=== PATIENT | male | born 1990 | race Caucasian/White ===

== ENCOUNTER 2017-02-28 16:11 | Emergency (ER) | payer SELFPAY ==
[2017-02-28 16:13] VITALS: BP 152/74; PULSE 90; RESP 24; TEMP 97.9; O2SAT 99
--- NOTE | 2017-02-28 16:27 | PD ---
HPI . neck pain x 1 week Chief Complaint: Back/ Neck Pain or Injury Time Seen by Provider: 16:27 Travel History International Travel<30 days: No Contact w/Intl Traveler<30days: No Traveled to known affect area: No History of Present Illness HPI 26-year-old male with no signal past medical history and no history of IV drug use here with complaints of neck pain for one week. Patient does not recall the mechanism of injury and says that he all of a sudden developed neck pain. He is now unable to move his right arm freely. He says that he went to another hospital and was told there was nothing wrong and given tramadol and ibuprofen, which has not relieved his pain. They decided to come here for further evaluation. He denies any bowel or bladder dysfunction. He has full range of motion of his neck, but it some elicits pain with movement. We discussed imaging modality and mom is requesting an MRI here in the emergency department because she does not have insurance for him. I explained to her that unfortunately I do not believe this is indicated and can be done on outpatient basis. She then goes on to tell me that he is having chest pain and then he started to complain of chest pain,, when asked to point to his pain is located in his neck area. He denies any shortness of breath, nausea, vomiting or diaphoresis. He denies any fever or chills, no photophobia, no neck stiffness. He has no other complaints. He is accompanied by both of his parents. PFSH Past Medical History Medical History: Denies Significant Hx Social History Alcohol Use: No Tobacco Use: No Substance Use: No Allergies-Medications (Allergen,Severity, Reaction): Coded Allergies: No Known Allergies (Unverified , 02/28/17) Reported Meds & Prescriptions Reported Meds & Active Scripts Active Prednisone 50 Mg Tab 50 Mg PO DAILY Flexeril (Cyclobenzaprine HCl) 5 Mg Tab 5 Mg PO TID Reported Ibuprofen 800 Mg Tab 800 Mg PO Q8H PRN Tramadol (Tramadol HCl) 50 Mg Tab 50 Mg PO Q8H PRN Review of Systems General / Constitutional: No: Fever, Chills Eyes: No: Photophobia, Visual changes HENT: Positive: Neck Pain, No: Headaches, Sore Throat, Neck Stiffness Cardiovascular: No: Chest Pain or Discomfort Respiratory: No: Shortness of Breath Gastrointestinal: No: Abdominal Pain Genitourinary: No: Dysuria Musculoskeletal: Positive: Limited ROM (right arm), No: Pain Skin: No Rash Neurologic: No: Weakness, Paresthesia Psychiatric: No: Depression Endocrine: No: Polydipsia Hematologic/Lymphatic: No: Easy Bruising Physical Exam Narrative GENERAL: AAO x 3, no acute distress, Well-nourished, well-developed patient. SKIN: Warm and dry. No visible rashes or bruising. HEAD: Normocephalic and atraumatic. EYES: No scleral icterus. No injection or drainage. EOM intact, PERRLA ENT: No nasal drainage noted. Mucous membranes pink. Airway patent. NECK: Supple, trachea midline. No JVD. No C-spine process tenderness. Full range of motion. flexion and extension normal. No swelling seen. CARDIOVASCULAR: Regular rate and rhythm without murmurs, gallops, or rubs. RESPIRATORY: Breath sounds equal bilaterally. No accessory muscle use. No rhonchi or rales. GASTROINTESTINAL: Abdomen soft, non-tender, nondistended. EXTREMITIES: No cyanosis or edema. BACK: Nontender without obvious deformity. No CVA tenderness. NEURO: CN II-12 intact, business change manager strength normal b/l, UE and LE 5/5, no focal deficits PSYCH: AAO x 3, normal affect. Data Data Last Documented VS Vital Signs Date Time Temp Pulse Resp B/P Pulse Ox O2 Delivery O2 Flow Rate FiO2 02/28/17 16:13 97.9 90 24 152/74 99 Orders Orphenadrine Inj (Norflex Inj) (02/28/17 16:45) Ketorolac Inj (Toradol Inj) (02/28/17 16:45) Spine, Cervical Compl(Jel3oop) (02/28/17 16:33) Complete Blood Count With Diff (02/28/17 16:33) Basic Metabolic Panel (Bmp) (02/28/17 16:33) Labs Laboratory Tests Test 02/28/17 17:15 White Blood Count 14.2 TH/MM3 Red Blood Count 4.38 MIL/MM3 Hemoglobin 12.9 GM/DL Hematocrit 36.7 % Mean Corpuscular Volume 83.9 FL Mean Corpuscular Hemoglobin 29.6 PG Mean Corpuscular Hemoglobin 35.2 % Concent Red Cell Distribution Width 13.0 % Platelet Count 338 TH/MM3 Mean Platelet Volume 8.4 FL Neutrophils (%) (Auto) 68.8 % Lymphocytes (%) (Auto) 19.3 % Monocytes (%) (Auto) 9.6 % Eosinophils (%) (Auto) 1.9 % Basophils (%) (Auto) 0.4 % Neutrophils # (Auto) 9.8 TH/MM3 Lymphocytes # (Auto) 2.7 TH/MM3 Monocytes # (Auto) 1.4 TH/MM3 Eosinophils # (Auto) 0.3 TH/MM3 Basophils # (Auto) 0.1 TH/MM3 CBC Comment DIFF FINAL Differential Comment Sodium Level 137 MEQ/L Potassium Level 4.6 MEQ/L Chloride Level 106 MEQ/L Carbon Dioxide Level 24.2 MEQ/L Anion Gap 7 MEQ/L Blood Urea Nitrogen 10 MG/DL Creatinine 0.67 MG/DL Estimat Glomerular Filtration 142 ML/MIN Rate Random Glucose 79 MG/DL Calcium Level 9.5 MG/DL MDM Medical Decision Making Medical Screen Exam Complete: Yes Emergency Medical Condition: Yes Medical Record Reviewed: Yes Differential Diagnosis muscle strain, cervical radiculopathy, less likely c spine fracture, less likely meningitis, Narrative Course 26 yr old male here with c/o neck pain. He denies any injury. exam unremarkable except for decreased ROM of right shoulder/arm. ? rotator cuff Explained to patient and family that I will check Xray to r/o any overt fracture etc. I will also check labs. I have discussed with Dr. Lambert. Patient given Toradol and Norflex. Reports pain is much better. He told his parents he wants to go to work. I discussed normal results with the patient and his family. WBC is slightly elevated, but no shift. He denies any fever, chills, respiratory or urinary symptoms. We do not suspect infectious etiology. I recommend outpatient MRI with PCP. Mom is trying to get all tests done here in ED. I have spent a prolonged amount of time discussing workup and outpatient tests. VSS. Patient is hemodynamically stable. I have watched him from where I am sitting and he is able to get up and look around the room. He moves his neck around without any difficulty. He verbalized his pain is better. I will dc with muscle relaxer and steroids. Case was discussed with Dr. Lambert prior to discharge and he recommends dc and outpatient f/u. Patient verbalized understanding of instructions, questions were answered. I advised them if their condition worsens, please return to the nearest emergency room for further care. Diagnosis Primary Impression: Neck pain Additional Impression: Muscle strain Referrals: [facility] Patient Instructions: General Instructions Departure Forms: Tests/Procedures, Work Release Enter return to work date: Mar 02, 2017 Additional Instructions: Please return to emergency department if your symptoms return or worsen. Follow up with your primary care provider. Take medications as prescribed. As we discussed, you will need to follow-up with the primary care provider. They will determine any further imaging as we discussed. Muscle relaxers can cause drowsiness. Do not drive, swim or operate heavy machinery while using these medications. Med/Other Pt SpecificInfo: Prescription(s) given Scripts Prednisone 50 Mg Tab50 Mg PO DAILY #5 TAB Prov:Leonardo Lambert MD 02/28/17 Cyclobenzaprine (Flexeril)5 Mg Tab5 Mg PO TID #21 TAB Prov:Leonardo Lambert MD 02/28/17 Disposition: 01 DISCHARGE HOME Condition: Stable Brenda Landrum Feb 28, 2017 16:27
[2017-02-28] MEDS ORDERED: ORPHENADRINE INJ 60 MG/2 ML AMP IM ONE (16:45)
[2017-02-28] MEDS ORDERED: KETOROLAC TROMETHAMINE 60 MG/2 ML (IM) VIAL IM ONE (16:45)
--- NOTE | 2017-02-28 17:15 | RADRPT ---
EXAM DATE/TIME: 02/28/2017 16:45 [facility] COMPARISON: No previous studies available for comparison. 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 MEDICAL HISTORY : None. SURGICAL HISTORY : None. ENCOUNTER: Initial ACUITY: 1 week PAIN SCORE: 10/10 LOCATION: Bilateral neck FINDINGS: Five view examination was performed. There is normal alignment and curvature of the vertebral bodies down to the level of C7. No evidence of fracture or subluxation. Vertebral body height is normal. The disc spaces are maintained. The prevertebral soft tissues are of normal thickness. The atlanto -axial articulation is intact. The bony neural foramen are patent bilaterally. CONCLUSION: Unremarkable examination of the cervical spine. Chidi Hallman MD on February 28, 2017 at 17:11 Board Certified Radiologist. This report was verified electronically.
[2017-02-28 17:54] LABS: AUTOMATED NEUTROPHIL # 9.8 TH/MM3 (1.8-7.7); BASOPHIL # 0.1 TH/MM3 (0-0.2); BASOPHIL % 0.4 % (0.0-2.0); EOSINOPHIL # 0.3 TH/MM3 (0-0.4); EOSINOPHIL % 1.9 % (0.0-4.0); HEMATOCRIT 36.7 % (39.0-51.0); HEMO FLAGS DIFF FINAL; LYMPH % 19.3 % (9.0-44.0); LYMPHOCYTE # 2.7 TH/MM3 (1.0-4.8); MEAN CELL VOLUME 83.9 FL (80.0-100.0); MEAN CORPUSCULAR HEMOGLOBIN 29.6 PG (27.0-34.0); MEAN CORPUSCULAR HGB CONC 35.2 % (32.0-36.0); MONO % 9.6 % (0.0-8.0); NEUT % 68.8 % (16.0-70.0); PLATELET COUNT 338 TH/MM3 (150-450); RED BLOOD COUNT 4.38 MIL/MM3 (4.50-5.90); WHITE BLOOD COUNT 14.2 TH/MM3 (4.0-11.0)
[2017-02-28] MEDS ORDERED: IBUP800T23 PO (18:17)
[2017-02-28] MEDS ORDERED: TRAM50TA PO (18:17)
[2017-02-28 18:33] LABS: BICARBONATE 24.2 MEQ/L (21.0-32.0); POTASSIUM 4.6 MEQ/L (3.5-5.1)
[2017-02-28] MEDS ORDERED: PRED50 PO (18:38)
[2017-02-28] MEDS ORDERED: CYCL5TAB PO (18:38)
== END 2017-02-28 19:56 | disposition home or self-care (01) ==
LOC: NEPC 16:11
DX: M54.2 Cervicalgia (principal)
CPT/HCPCS: 72050; 80048; 85025; 96372; 99284; J1885; J2360